=== PATIENT | male | born 1985 | race Caucasian/White ===

== ENCOUNTER 2017-06-30 16:53 | Emergency (ER) | payer OTHER ==
[~2017-06-30] VITALS: Ht 180.3 cm; Wt 102.1 kg
[~2017-06-30 16:53] MED LIST: AMITRIPTYLINE H10 M1 PO; TRAZODONE HCL100 MG PO
[2017-06-30 17:23] LABS: URINE BILIRUBIN NEGATIVE (Negative); URINE BLOOD TRACE (Negative); URINE CLARITY CLEAR; URINE COLOR YELLOW; URINE GLUCOSE-RANDOM* NEGATIVE (Negative); URINE KETONES NEGATIVE (Negative); URINE LEUKOCYTES-REFLEX NEGATIVE (Negative); URINE NITRITE-REFLEX NEGATIVE (Negative); URINE PROTEIN (DIPSTICK) TRACE (Negative); URINE SPECIFIC GRAVITY 1.015 (1.005-1.035); URINE UROBILINOGEN 0.2 E.U./dl (0.2-1.0)
[2017-06-30 17:25] LABS: ABSOLUTE NEUTROPHILS 2.5 thou/uL (1.4-8.2); BASOPHILS 2.3 % (0.0-2.0); EOSINOPHILS 1.7 % (0.0-3.0); HEMATOCRIT 45.8 % (42.0-52.0); HEMOGLOBIN 15.5 gm/dL (14.0-18.0); LYMPHOCYTES 49.2 % (24.0-44.0); MCH 28.5 pg (26.0-34.0); MCHC 33.9 g/dL (28.0-37.0); MCV 84.1 fL (80.0-100.0); MONOCYTES 8.5 % (1.0-8.0); PLATELET COUNT 194 thou/uL (150-400); POLYS 38.3 % (36.0-66.0); RBC 5.44 mil/uL (4.50-6.00); RDW 15.3 % (10.5-14.5); WBC 6.6 thou/uL (4.0-11.0)
[2017-06-30 17:32] LABS: AMP/METHAMP Negative (Negative); BARBITURATES Negative (Negative); BENZODIAZEPINES Negative (Negative); COCAINE Negative (Negative); METHADONE Negative (Negative); OPIATES Negative (Negative); PCP Negative (Negative)
[2017-06-30 17:33] LABS: ANION GAP 11 mmol/L (7-16); BUN 17 mg/dL (7-18); CALCIUM 8.6 mg/dL (8.5-10.1); CHLORIDE 103 mmol/L (98-107); CO2 26 mmol/L (21-32); CREATININE 1.1 mg/dL (0.7-1.3); GLUCOSE 111 mg/dL (74-106); POTASSIUM 4.5 mmol/L (3.5-5.1); SODIUM 140 mmol/L (136-145)
[2017-06-30 17:39] LABS: ALBUMIN 4.4 g/dL (3.4-5.0); SGOT 49 U/L (15-37); SGPT 72 U/L (30-65); TOTAL BILIRUBIN 0.2 mg/dL (<0.1-1.0); TOTAL PROTEIN 8.4 g/dL (6.4-8.2)
[2017-06-30 17:52] LABS: SALICYLATE 3.3 mg/dL (2.8-20.0)
[2017-06-30] MEDS ORDERED: QUETIAPINE FUM100 MG PO (20:49)
[2017-06-30] MEDS ORDERED: PRINIVIL20 M1 PO (20:51)
[2017-06-30] MEDS ORDERED: METOPROLOL TART25 MG PO (20:52)
[2017-07-01 03:00] VITALS: BP 133/98
== END 2017-07-01 06:03 | disposition home or self-care (01) ==
LOC: ER 16:53
PROVIDERS: Emergency Medicine
DX: R45.851 Suicidal ideations (principal); F10.129 Alcohol abuse with intoxication, unspecified; F32.9 Major depressive disorder, single episode, unspecified; Y90.8 Blood alcohol level of 240 mg/100 ml or more

== ENCOUNTER 2019-09-10 08:57 | Inpatient (IN) | payer OTHER ==
[~2019-09-10] VITALS: Ht 180.3 cm; Wt 84.5 kg
[~2019-09-10 08:57] MED LIST changes: +METOPROLOL TART25 MG PO; +PRINIVIL20 M1 PO; +QUETIAPINE FUM100 MG PO
[2019-09-10 09:07] VITALS: BP 114/86
[2019-09-10 09:25] LABS: URINE BILIRUBIN NEGATIVE (Negative); URINE BLOOD 1+ (Negative); URINE CLARITY CLEAR; URINE COLOR YELLOW; URINE GLUCOSE-RANDOM* NEGATIVE (Negative); URINE KETONES TRACE (Negative); URINE LEUKOCYTES-REFLEX NEGATIVE (Negative); URINE NITRITE-REFLEX NEGATIVE (Negative); URINE PROTEIN (DIPSTICK) 1+ (Negative); URINE UROBILINOGEN 0.2 E.U./dl (0.2-1.0)
[2019-09-10 09:38] LABS: BACTERIA-REFLEX 1-9 Few /HPF (None Seen); CRYSTALS None Seen /LPF (None Seen); HYALINE CASTS 4-10 Moderate /LPF (None Seen); SQUAMOUS 0-3 Few /LPF (0-3); URINE RBC None Seen /HPF (0-2); URINE WBC-REFLEX 0-5 Rare /HPF (0-5)
[2019-09-10 09:45] LABS: HEMATOCRIT 46.5 % (42.0-52.0); HEMOGLOBIN 15.5 gm/dL (14.0-18.0); MCH 27.9 pg (26.0-34.0); MCHC 33.4 g/dL (28.0-37.0); MCV 83.6 fL (80.0-100.0); PLATELET COUNT 218 thou/uL (150-400); RBC 5.56 mil/uL (4.50-6.00); RDW 13.3 % (10.5-14.5); WBC 26.9 thou/uL (4.0-11.0)
[2019-09-10 09:57] LABS: CALCIUM 9.1 mg/dL (8.5-10.1); CREATININE 1.1 mg/dL (0.7-1.3)
[2019-09-10 10:03] LABS: ALBUMIN 3.9 g/dL (3.4-5.0); TOTAL BILIRUBIN 1.1 mg/dL (0.2-1.0); TOTAL PROTEIN 8.3 g/dL (6.4-8.2)
[2019-09-10 10:15] LABS: ABSOLUTE NEUTROPHILS 23.4 thou/uL (1.4-8.2); PLATELET ESTIMATE NORMAL
--- NOTE | 2019-09-10 17:53 | NUR ---
Patient arrived on unit at 1645. Patient admitted from ED for Acute Appedicitis. Medical History: TBI, Limb Salvage, Depression. Vitals signs : BP 141/74, P 105, T 100.7 Axillary, R 18, O2 Sats 98% on RA. Patient has NS 0.9% at 125mL/hr. His designated visitor is his mother, Monica. She will be picking up his medications, as he brought his Seroquel 200mg po q HS for Mood, Fluoxetene 20mg 2 capsules in am for anxiety. Patient is very irritable at times, becoming frustrated with some of the Admission Questions/Process. He became angry when this nurse educated him that his medications would have to go to the Pharmacy or home with his Mother, stating "great!, now you guys arent going to give me my sleeping Meds!" Patient is also angry because the Surgeon hasnt set a surgery time yet. Patient stated "if you uys are going to hold me here for another night, then I'm going to need some more pain meds!" Will report to on-coming nurse.
[2019-09-10] MEDS ORDERED: PROZAC20 MG PO (18:33)
[2019-09-10 19:39] VITALS: BP 127/78
[2019-09-10 20:12] LABS: MAGNESIUM 2.2 mg/dL (1.8-2.4); PHOSPHORUS 2.6 mg/dL (2.5-4.9)
[2019-09-11] VITALS (7 sets, daily range): BP systolic 123–178; BP diastolic 70–95
--- NOTE | 2019-09-11 00:51 | NUR ---
ASSUMED CARE OF PT AT 1900. PT IS A/O X4. PT APPEARED VERY ANXIOUS AND AGITATED. STATED HE THOUGHT IT WAS RIDICULOUS THAT THE HAD TO WAIT ALL DAY LONG FOR THEM TO DECIDE WHEN HIS SURGERY WOULD BE. BRETT CALLED AT 1999 TO NOTIFY PT THAT SURGERY WOULD BE EARLY IN THE MORNING AND THAT THE PT NEEDED TO STAY ON AN NPO DIET UNTIL AFTER HIS PROCEDURE. PHYSICIAN ALSO MENTIONED THAT SHE WANTED HIM TO STILL RECEIVE HIS SEROQUEL IN THE AM WITH A SMALL SIP OF WATER. COMPLETED ALCHOL ASSESSMENT ORDERED. PAIN LEVEL IS A CONSISTENT 8-10 WHEN ASSESSED. PRN PAIN MEDICATION AND ANXIETY MEDICATION GIVEN DIRECTED. PT IS NOW IN HIS BED AND APPEARS TO BE SLEEPING. CALL LIGHT IS WITHIN REACH. WILL CONTINUE TO MONITOR.
[2019-09-11 05:51] LABS: HEMATOCRIT 41.1 % (42.0-52.0); MCH 27.6 pg (26.0-34.0); MCHC 32.8 g/dL (28.0-37.0); MCV 84.1 fL (80.0-100.0); PLATELET COUNT 197 thou/uL (150-400); RBC 4.89 mil/uL (4.50-6.00); RDW 13.6 % (10.5-14.5); WBC 20.2 thou/uL (4.0-11.0)
[2019-09-11 05:55] LABS: HEMOGLOBIN 13.5 gm/dL (14.0-18.0)
[2019-09-11 06:08] LABS: ALBUMIN 3.1 g/dL (3.4-5.0); CALCIUM 8.5 mg/dL (8.5-10.1); MAGNESIUM 1.9 mg/dL (1.8-2.4); PHOSPHORUS 2.5 mg/dL (2.5-4.9); POTASSIUM 3.6 mmol/L (3.5-5.1); TOTAL BILIRUBIN 0.6 mg/dL (0.2-1.0)
[2019-09-11 06:59] LABS: ABSOLUTE NEUTROPHILS 16.4 thou/uL (1.4-8.2); PLATELET ESTIMATE NORMAL
--- NOTE | 2019-09-11 17:39 | NUR ---
A/O, calm and cooperative. no signs of bleeding on the surgical site; tolerates full liquid diet, no n/v; complains of pain in the surgical site, pain medication given and worked. sitting on chair, watching TV, will keep monitoring.
[2019-09-12 04:22] VITALS: BP 129/86
[2019-09-12 05:57] LABS: ABSOLUTE NEUTROPHILS 12.3 thou/uL (1.4-8.2); BASOPHILS 0.1 % (0.0-2.0); HEMATOCRIT 34.7 % (42.0-52.0); LYMPHOCYTES 7.2 % (24.0-44.0); MCH 27.5 pg (26.0-34.0); MCV 83.5 fL (80.0-100.0); MONOCYTES 8.1 % (1.0-8.0); PLATELET COUNT 191 thou/uL (150-400); POLYS 84.6 % (36.0-66.0); RBC 4.16 mil/uL (4.50-6.00); RDW 13.4 % (10.5-14.5); WBC 14.6 thou/uL (4.0-11.0)
[2019-09-12 06:13] LABS: HEMOGLOBIN 11.4 gm/dL (14.0-18.0)
[2019-09-12 06:14] LABS: CALCIUM 8.5 mg/dL (8.5-10.1); CREATININE 0.7 mg/dL (0.7-1.3); PHOSPHORUS 2.9 mg/dL (2.5-4.9); POTASSIUM 4.2 mmol/L (3.5-5.1)
--- NOTE | 2019-09-12 07:53 | EKG ---
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 : 1985 Requested By: Bhavna Alcocer Order Number: [id number] MD: Gume Cespedes Measurements Intervals [place] Rate: 103 P: 39 FL: 142 QRS: 19 QRSD: 84 T: 16 QT: 323 QTc: 423 Interpretive Statements Sinus tachycardia Otherwise no significant abnormality Compared to ECG 10/23/2013 22:07:09 No significant changes Electronically Signed On 09-12-2019 7:53:35 CDT by Gume Cespedes [email or web address] <ELECTRONICALLY SIGNED> By: Gume Cespedes MD, [facility] 09/12/19 0753 1625 1625 Gume Cespedes MD, [facility] /EPI
[2019-09-12 07:59] VITALS: BP 137/92
[2019-09-12 15:14] VITALS: BP 135/90
--- NOTE | 2019-09-12 16:17 | NUR ---
Received awake on bed. Due medications given as prescribed, able to swallow meds w/o difficulty. On room air. A+Ox4. On MS. On CIWA monitoring. On full liquid diet- tolerating well; no nausea, no vomiting and no abdominal pain noted. Continent of bowel and bladder, able to go to the toilet independently. With 3 surgical lap sites- C/D/I- no signs of bleeding, infection noted. With TETE drain in place. Assisted in ADLs. Complained of pain, due PRN pain meds given as prescribed. With NS at 100cc/hr, infusing well at L FA. Up ad minnie, independent with ADLs. Pt seen and examined by Dr Alcocer this AM. Visited by her relative today- update given.
[2019-09-12 19:29] VITALS: BP 127/85
--- NOTE | 2019-09-13 04:31 | NUR ---
ASSUMED CARE OF PT AT 1900. PT IS A/O X4. VSS. LAP SITES DRY AND INTACT. J/P DRAINAGE AMOUNT IS SMALL. PT HAS SLEPT WELL THIS EVENING. C/O PAIN. PRN PAIN MEDICATION GIVEN DIRECTED. CALL LIGHT IS WITHIN REACH. PT IS ABLE TO MAKE NEEDS KNOWN. WILL CONTINUE TO MONITOR.
[2019-09-13 06:03] LABS: ABSOLUTE NEUTROPHILS 6.7 thou/uL (1.4-8.2); BASOPHILS 0.6 % (0.0-2.0); EOSINOPHILS 0.9 % (0.0-3.0); HEMATOCRIT 33.4 % (42.0-52.0); HEMOGLOBIN 11.1 gm/dL (14.0-18.0); LYMPHOCYTES 20.6 % (24.0-44.0); MCH 27.9 pg (26.0-34.0); MCHC 33.1 g/dL (28.0-37.0); MCV 84.1 fL (80.0-100.0); MONOCYTES 11.4 % (1.0-8.0); PLATELET COUNT 200 thou/uL (150-400); POLYS 66.5 % (36.0-66.0); RBC 3.96 mil/uL (4.50-6.00); RDW 13.4 % (10.5-14.5)
[2019-09-13 06:46] LABS: CALCIUM 8.4 mg/dL (8.5-10.1); CREATININE 0.8 mg/dL (0.7-1.3); POTASSIUM 3.4 mmol/L (3.5-5.1)
[2019-09-13 07:50] VITALS: BP 131/100
[2019-09-13] MEDS ORDERED: FLAGYL500 M1 PO (10:38)
[2019-09-13] MEDS ORDERED: PERCOCET 10-321 EACH PO (10:47)
[2019-09-13] MEDS ORDERED: B-12500 MCG PO (10:48)
[2019-09-13] MEDS ORDERED: VITAMIN B-1100 M2 PO (10:49)
[2019-09-13] MEDS ORDERED: AUGMENTIN 875-1 EACH PO (10:59)
--- NOTE | 2019-09-13 12:47 | NUR ---
Received awake on bed. Due medications given as prescribed, able to swallow meds w/o difficulty. On room air. A+Ox4. Continued to do CIWA Monitoring. On MS. On regular diet, tolerating well; no nausea, no vomiting and no abdominal pain. Continent of bowel and bladder, able to go to the toilet. Lap sites- w/ dermabond; no signs of bleeding, no drainage and no signs of infection noted. With TETE drain in place- with pink drainage noted. Assisted in ADLs. With SL at R AC, on IV antibiotics. Complained of pain, due PRN pain meds given as prescribed. Pt seen and examined by Dr Frazier this AM, TETE drain removed- output measured and recorded; may progress diet to regular diet. To continue monitoring patient. Pt seen and examined by Dr Alcocer, discussed about discharge plans; to give one time pain medications, IV antibiotics dose at 11am and she'll work on discharge orders. Pt requested to talk to physician about notes for work- pt and examined by Dr Alcocer. To continue monitoring patient.
[2019-09-13 13:33] VITALS: BP 131/100
--- NOTE | 2019-09-13 20:57 | O ---
[facility] [place] [address] OPERATIVE REPORT Name: SHUN ELMORE Room #: 453-P [facility] IN M.R.#: [id number] Admission: 09/10/19 Attend Phys: Bhavna Alcocer MD Discharge: 09/13/19 Date of : 83 Report #: [id number] THIS REPORT FOR: cc: ESTEFANI - Leslie family physician/PCP ESTEFANI - Leslie family physician/PCP Leobardo Frazier MD ~ CC: [facility] physician/PCP Bhavna Alcocer DATE OF SERVICE: 09/11/2019 PREOPERATIVE DIAGNOSIS: Acute appendicitis. POSTOPERATIVE DIAGNOSIS: Acute appendicitis. OPERATIVE PROCEDURE DONE: Laparoscopic appendectomy. OPERATING SURGEON: Leobardo Frazier M.D. OPERATIVE FINDINGS: The patient was noted to have a phlegmon in the right lower quadrant. The entire appendix appeared to be necrotic and there was intraoperative rupture during dissection of the appendix. There was approximately about 25 mL of seropurulent fluid in the pelvis. INDICATION FOR THE PROCEDURE: The patient is a 33-year-old male who presented with complaints of acute onset of abdominal pain that has been there for [address] scan that was done showed features of acute appendicitis with a phlegmon in the right lower quadrant. The patient was advised laparoscopic appendectomy. The patient showed understanding and agreed to proceed. DESCRIPTION OF PROCEDURE: After explaining to the patient in detail and informed consent was obtained, the patient was identified in the preoperative holding area. The patient was transferred to the operating room and was placed in supine position. Sequential compressive devices were placed for DVT prophylaxis. Preoperative antibiotics were given. After induction of anesthesia, the abdomen was prepped and draped in a sterile fashion. Through a left upper quadrant stab incision using Veress needle technique, pneumoperitoneum was created. Thereafter, through a 1 cm incision in the left lower quadrant and using Optiview technique, peritoneal cavity was entered, through a 2 cm supraumbilical incision, another 12 mm trocar was placed, through a 1 cm suprapubic incision approximately about 3 cm above the pubic physis, another 5 mm trocar was placed. On initial inspection, the patient was noted to have a phlegmon in the right lower quadrant, which was gently dissected off. Prior to this, I removed the Veress needle after ensuring there were no injuries from it. I continued to dissect the phlegmon and the appendix was identified, which appeared to be necrotic in its entire length reaching the pelvis. During [address] [address] OPERATIVE REPORT Name: RAMÍREZDANYLINGELO DEMETRIUS Room #: 453-P [facility] IN M.R.#: [id number] Admission: 09/10/19 Attend Phys: Bhavna Alcocer MD Discharge: 09/13/19 Date of : 83 Report #: [id number] dissection, there was intraoperative rupture of the appendix near the base, spilling out the fecalith. A window was created in the mesoappendix at the base and the appendix was divided using a MARTIN blue load stapler. Another blue load stapler was used to divide the mesoappendix. The appendix was then retrieved along with the fecalith and was retrieved using an EndoCatch. Thorough saline irrigation was given. Absolute hemostasis was ensured. A 19-Lebanese TETE drain was placed in the pelvis. After ensuring adequate hemostasis, the 12 mm port site incision was closed with 0 Vicryl using a fascial closure device. Skin was closed with 4-0 Monocryl for all the incisions, Dermabond was applied. The patient was stable at the end of the procedure. The patient was awoken from anesthesia and was transferred to the recovery room in stable condition. ESTIMATED BLOOD LOSS: 10 mL. CONDITION OF THE PATIENT: Stable. FLUIDS GIVEN: Per anesthesia notes. SPECIMEN SENT: Appendix. COMPLICATIONS: None. ANESTHESIA: General anesthesia. <ELECTRONICALLY SIGNED> By: Leobardo Frazier MD 09/13/19 2057 0917 0925 Leobardo Frazier MD /nt
--- NOTE | 2019-09-14 16:07 | PATH ---
[facility] [address] [place] [address] PATHOLOGY RPT PROCEDURE Name: KAMERON ELMORE Room #: 453-P [facility] IN M.R.#: [id number] Admission: 09/10/19 Date of : 83 Discharge: 09/13/19 Report #: [id number] Path Case #: [id number] [facility] Accession Number: [id number] . 01 Material submitted: . appendix - APPENDIX . 01 Clinical history: . Acute appendicitis . 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 (IUV/db; 09/14/2019) LBQ 09/14/2019 1450 Local . 02 Electronically signed: . Ceci Bocanegra MD, Pathologist NPI- [id number] . 01 Gross description: . The specimen is received in formalin, labeled "Kameron Elmore, appendix". Received is a shaggy, disrupted vermiform appendix measuring 12.8 cm in length and ranges in diameter from 0.6 to 1.1 cm with a moderate amount of attached mesoappendix. The surgical margin is shaggy in appearance, and is inked black. The serosal surface is dusky waddell-brown and shaggy in appearance with two areas of perforation measuring 0.5 and 0.6 cm, which are located 4.7 and 9.3 cm from the proximal margin. The surrounding serosal surfaces are inked blue. Sectioning reveals a dilated lumen filled with fecal material. The specimen is submitted representatively as follows: . A1 proximal margin and bisected tip A2 entire perforation closest to proximal margin A3 entire perforation closest to distal tip A4 additional cross-sections of appendix. Gross motor gross are taken. (CAA; 09/13/2019) QA/MERGED WITH [facility] 09/13/2019 1757 Local . 02 Pathologist provided ICD-10: K35.80 . 02 CPT . 596430 Specimen Comment: A courtesy copy of this report has been sent to [phone], [place] [address] PATHOLOGY RPT PROCEDURE Name: KAMERON ELMORE Room #: 453-P DIS IN M.R.#: [id number] Admission: 09/10/19 Date of : 83 Discharge: 09/13/19 Report #: [id number] Path Case #: [id number] Specimen Comment: [id number] Specimen Comment: Report sent to / DR HUDDLESTON Performed at: [address] [facility], [place], [place] [id number] MD Giovanny Delgado MD Phone: [phone] Performed at: [address] [facility] [id number] MD Ceci Bocanegra MD Phone: [phone]
== END 2019-09-13 15:00 | disposition home or self-care (01) | DRG 341 ==
LOC: ER 08:57 → 4W 12:11 → EROBS 12:11 → 4W 16:30
PROVIDERS: Emergency Medicine; Surgery; ADMIT Internal Medicine; ATTEND Internal Medicine
PROC: 0DTJ4ZZ Resection of Appendix, Percutaneous Endoscopic Approach (ICD-10-PCS; principal; 2019-09-11)
DX: K35.80 Unspecified acute appendicitis (principal); R65.11 Systemic inflammatory response syndrome (SIRS) of non-infectious origin with acute organ dysfunction; F32.9 Major depressive disorder, single episode, unspecified; F12.90 Cannabis use, unspecified, uncomplicated; F17.210 Nicotine dependence, cigarettes, uncomplicated; Z20.828 Contact with and (suspected) exposure to other viral communicable diseases; F43.10 Post-traumatic stress disorder, unspecified; Z87.820 Personal history of traumatic brain injury; X58.XXXA Exposure to other specified factors, initial encounter; Y93.89 Activity, other specified; Y92.89 Other specified places as the place of occurrence of the external cause; Y99.8 Other external cause status; Z71.6 Tobacco abuse counseling; Z79.899 Other long term (current) drug therapy
CPT/HCPCS: 10040; 10045; 50101; 50411; 50555; 50558; 50739; 50740; 51489; 51975; 52265; 52266; 53310; 54022; 54118; 56525; 56526; 62110; 62900; 70005